=== PATIENT | female | born 1985 | race Caucasian/White ===

== ENCOUNTER 2018-04-23 21:16 | Emergency (ER) | payer MEDICAID, SELFPAY ==
[2018-04-23 21:17] VITALS: BP 113/92; PULSE 78; RESP 16; TEMP 36.8; O2SAT 98; BMI 20.3
[2018-04-23] MEDS: 0.9% Normal Saline 1,000 ML 1000 ML IV (22:17)
[2018-04-23] MEDS: MethylPREDNISolone 125 MG/2 ML Vial 100 MG IV (22:17)
--- NOTE | 2018-04-23 22:24 | US_ITS ---
STUDY: VENOUS DOPPLER ULTRASOUND - RIGHT LOWER EXTREMITY REASON FOR EXAM: Female, 32 years old. Right leg pain TECHNIQUE: Ultrasound evaluation of the deep vein system to include hardy-scale imaging and compression was performed. Hardy-scale imaging and Doppler sonographic evaluation, including duplex spectral analysis and qualitative color flow sonography, was performed. COMPARISON: None. FINDINGS: Common Femoral Vein: Normal compression, spontaneity and augmentation. Normal color Doppler. Femoral Proximal: Normal compression. Femoral Middle: Normal compression, spontaneity and augmentation. Normal color Doppler. Femoral Distal: Normal compression. Popliteal Vein: Normal compression, spontaneity and augmentation. Normal color Doppler. Posterior Tibial Vein: Normal compression. Peroneal Vein: Normal compression. US/Venous Duplex Imag/Limited/Uni IMPRESSION: Normal venous Doppler ultrasound of the lower extremity. Electronically Signed: Ernestina Lerma MD at 22:59 EDT Tel , Service support ,
[2018-04-23 22:50] LABS: Anion Gap 7 (5-15); BUN 10 mg/dL (7-18); Calcium,Total 8.9 mg/dL (8.5-10.1); Chloride 106 mmol/L (98-107); Creatinine, Serum 0.77 mg/dL (0.55-1.02); EST Glomerular Filtration Rate 91 mL/min (>60); Est Glom Filt Rate - Afr Amer 110 mL/min (>60); Estimated Creatinine Clearance 93.76 ml/min; Glucose 87 mg/dL (74-106); Potassium 3.7 mmol/L (3.5-5.1); Sodium Level 140 mmol/L (136-145)
[2018-04-23 23:02] LABS: CPK Total, Creatine Kinase 29 U/L (26-192)
--- NOTE | 2018-04-23 23:25 | ED.DCSUM_ITS ---
- ER Visit Summary Date of Service: 04/23/18 Chief Complaint: Right leg pain History of Present Illness: The patient is a 32 F who states that she carried a child up and down a long flight of stairs at [facility] on April 20. Patient states had muscle cramps in her legs the next day. She continues to have worsening pain in her right leg that now radiates up into her thigh. She describes her foot intermittently getting purple. She was seen at [facility]. She was given [place] and Naprosyn along with crutches. Physical Examination: Vital signs unremarkable. Patient sitting upright in bed no acute distress. Head neck examination reveals that she is edentulous. Heart is regular rate and rhythm. Lung sounds are clear. Abdomen is soft nontender. Back examination reveals no tenderness. Lower extremity examination was muscular tenderness throughout the right thigh and lower leg. She has strong distal pulses. She has normal coloration to her leg. She has pain with motion but has good range of motion. Test Results: Venous ultrasound is performed and unremarkable. CK level was obtained and normal. Chemistry studies normal. Emergency Department Course and Treatment: Patient was given a dose of Flexeril and Solu-Medrol here. She already been given Naprosyn and [place]. She will be given prescriptions for Flexeril and prednisone. At this time I discussed test results with her. I think she likely has muscle irritation and inflammation from the overuse. Treatment Plan: [] Disposition: Discharge Impression: Musculoskeletal right leg pain This note was generated with [employer] dictation software. It may contain incorrect words, spelling, and punctuation that were not noted in review of the chart prior to signing ED Disposition - Plan for ED Patient: Chief Complaint: Lower Extremity Injury Referrals: Care Physician,No Primary [Primary Care Provider] -
--- NOTE | 2018-04-23 23:25 | ED.DEP ---
ED Disposition - Plan for ED Patient: Disposition: Home or Assisted Living Chief Complaint: Lower Extremity Injury Instructions: ED Strain Muscle Ext Prescriptions: Prednisone [Deltasone] 40 mg PO DAILY #10 tablet Cyclobenzaprine [Flexeril] 10 mg PO TID PRN #20 tablet PRN Reason: Muscle Spasm Referrals: Amadeo Diego PA [PHYSICIAN [employer] [employer]] -
[2018-04-23 23:40] VITALS: BP 125/63; PULSE 77; RESP 18; O2SAT 97
== END 2018-04-23 23:41 | disposition home or self-care (01) ==
PROVIDERS: Emergency Provider Emergency Medicine
DX: M79.604 Pain in right leg (principal); J45.909 Unspecified asthma, uncomplicated; Z72.0 Tobacco use
CPT/HCPCS: 80048; 82550; 93971; 96361; 96374; 99284; J7030; A4216

== ENCOUNTER 2020-03-11 12:52 | Emergency (ER) | payer MEDICAID, SELFPAY ==
[2020-03-11 12:54] VITALS: BP 125/84; PULSE 76; RESP 16; TEMP 36.3; O2SAT 99; BMI 19.3
--- NOTE | 2020-03-11 13:38 | ED.DCSUM_ITS ---
- ER Visit Summary Date of Service: 03/11/20 Chief Complaint: Right lower molar pain a cavity History of Present Illness: The patient is a 34 F no seen past medical history. She had all of her teeth removed except at the time that he did that they did not think her right molar was going to break the skin so the never took it out. She has had pain there now for the last 6 to 8 months. Has a large cavity. Denies any fever chills. No facial swelling. Physical Examination: Well-appearing young female vital signs stable afebrile. H EENT exam all of her teeth are gone except her right lower last molar which has a large cavity. Palpation. Minor gum swelling. No visible abscess. No facial swelling. No trismus. No trouble swallowing or breathing. Otherwise her other dentition are all been removed. Neck nontender no lymphadenopathy. Lungs clear to auscultation. Heart regular rhythm no murmur. M soft nontender. Extremities moves all 4. Neurologically she is awake alert with no focal motor deficits. Test Results: None Emergency Department Course and Treatment: Dose of Pen-Vee K here. Treatment Plan: Refer to Dr. Figueroa Michaud oral maxillofacial surgeon for possible molar removal. Started on Pen-Vee K 4 times a day for 10 days. Tylenol and Motrin for pain. Disposition: Discharge Impression: Right lower molar cavity Rule out abscess Dental pain This note was generated with [employer] dictation software. It may contain incorrect words, spelling, and punctuation that were not noted in review of the chart prior to signing ED Disposition - Plan for ED Patient: Referrals: Care Physician,No Primary [Primary Care Provider] -
--- NOTE | 2020-03-11 13:42 | ED.DEP ---
ED Disposition - Plan for ED Patient: Disposition: Home or Assisted Living Instructions: ED CAVITY Dental, ED ABSCESS DENTAL Prescriptions: Penicillin Vk [Pen-Vee K , V-Cillin K] 500 mg PO 4X/DAY 10 Days #40 tab Prescription Printed Referrals: Figueroa Michaud DDS [STAFF PHYSICIAN] - As soon as possible Additional Instructions: Pen-Vee K the antibiotic 4 times a day till gone. Tylenol and Motrin for pain. I should try to decrease swelling. Call and follow-up with either a local dentist or Dr. Nikolas Michaud a local oral surgeon to have that molar removed.
[2020-03-11] MEDS: Penicillin Vk 250 MG Tablet 500 MG PO (13:45)
== END 2020-03-11 13:59 | disposition home or self-care (01) ==
LOC: ED 13:48
PROVIDERS: Emergency Provider Emergency Medicine
DX: K04.7 Periapical abscess without sinus (principal); K02.9 Dental caries, unspecified; Z72.0 Tobacco use
CPT/HCPCS: 99283

== ENCOUNTER 2022-08-25 06:38 | Emergency (ER) | payer MEDICAID, SELFPAY ==
[2022-08-25 06:39] VITALS: BP 132/90; PULSE 70; RESP 17; TEMP 37; O2SAT 100; BMI 20.9
--- NOTE | 2022-08-25 07:08 | EKG12_ITS ---
Test Reason : CP Blood Pressure : / mmHG Vent. Rate : 069 BPM Atrial Rate : 069 BPM P-R Int : 148 ms QRS Dur : 088 ms QT Int : 394 ms P-R-T Axes : 041 042 047 degrees QTc Int : 422 ms Normal sinus rhythm Normal ECG Confirmed by ERICKA WILL, ALIN ([id number]), web content editor KIEL JNOES ([id number]) on 08/28/2022 10:29:16 AM Referred By: LAKSHMI Confirmed By:ALIN BARNETT MD
[2022-08-25] MEDS: Aspirin 325 MG Tablet PO (07:14)
--- NOTE | 2022-08-25 07:20 | RAD_ITS ---
INDICATION: chest pain EXAMINATION/TECHNIQUE: X-RAY - XR Chest 2 Views COMPARISON: None. FINDINGS: LINES/DEVICES: None. LUNGS: No consolidation, edema or effusion. No pneumothorax. MEDIASTINUM AND CARDIOVASCULAR STRUCTURES: Cardiac silhouette not enlarged. Central airways and mediastinal contour are unremarkable. BONES AND SOFT TISSUES: Unremarkable. RAD/Chest PA and Lateral IMPRESSION: No acute cardiopulmonary disease. Electronically Signed: Zhao Trujillo MD at 7:40 EST ,
[2022-08-25 07:25] LABS: Absolute Lymphocyte Count 2.43 X10^3/uL (0.83-4.51); Absolute Neutrophil Count 3.1 X10^3/uL (2.0-7.7); Basophil# 0.07 X10^3/uL; Basophil% 1.1 % (0-1); Eosinophil# 0.64 X10^3/uL; Eosinophils% 9.6 % (0-5); Hematocrit 37.4 % (37-47); Hemoglobin 12.3 g/dL (12.0-15.0); Lymphocyte # 2.43 X10^3/ul (0.83-4.51); Lymphocyte % 36.5 % (19-41); Mean Corp Hgb Conc 32.9 g/dL (32-36); Mean Corpuscular Hgb 28.7 pg (27.0-32.0); Mean Corpuscular Volume 87.4 fL (81-99); Mean Platelet Vol. 10.6 fl (6.2-12.0); NRBC Flagged by Analyzer 0 % (0-5); Neutrophil % 46.5 % (47-70); Platelet Count 213 K/mm3 (150-450); RBC Distribution Width CV 12.7 % (11.6-14.6); RBC Distribution Width SD 40.8 fl (35.1-43.9); Red Blood Count 4.28 M/mm3 (4.2-5.4); White Blood Count 6.7 K/mm3 (4.4-11.0)
--- NOTE | 2022-08-25 07:41 | EX.ED.DYSGE1 ---
HPI History of Present Illness Chief Complaint: Chest Pain Narrative Narrative: Patient is a 37-year-old female with past medical history of smoking restless leg syndrome and chronic pain. She states that over the past 8 hours she will have intermittent bouts of lower chest/upper abdominal pain that is sharp in nature lasting approximately 1 minute and then resolving. She states that there is no nausea vomiting diaphoresis or shortness of breath associated with this. She denies any illicit drug use or excessive stimulant use or cardiac disease in the family at a young age. However she does report that there is a family history of cardiac disease starting in the 50s and 60s and her mother and father which concerned her and therefore she presents for evaluation. Otherwise she denies any recent travel surgery or history of DVT/PE PFSH PFSH Home Medications budesonide-formoterol HFA 160 mcg-4.5 mcg/actuation aerosol inhaler 1 inh inhalation PRN PRN SOB 08/25/22 [History Last Taken Unknown] meloxicam 15 mg tablet 15 mg PO DAILY 08/25/22 [History Last Taken Unknown] mirtazapine 30 mg tablet 30 mg PO DAILY 08/25/22 [History Last Taken Unknown] tramadol 50 mg tablet 50 mg PO QHS 08/25/22 [History Last Taken Unknown] Allergy/AdvReac Type Severity Reaction Status Date / Time acetaminophen [From Percocet] AdvReac Vomiting Verified 08/25/22 06:44 oxycodone [From Percocet] AdvReac Vomiting Verified 08/25/22 06:44 Social History Smoking Status: Former smoker [facility] ED Constitutional Constitutional ED: Denies chills or fever(s) ENT ENT ED: Denies sore throat Cardiovascular Cardiovascular: Reports chest pain; Denies palpitations or racing heartbeat Respiratory/Chest Respiratory/Chest: Denies cough or dyspnea Gastrointestinal Gastrointestinal: Reports abdominal pain; Denies diarrhea, nausea or vomiting Genitourinary Genitourinary ED: Denies dysuria Musculoskeletal Musculoskeletal: Denies myalgias Integumentary Denies rash Neurologic Neurologic: Denies headache(s) Hematologic/Lymphatic Hematologic/Lymphatic: Denies easy bleeding or easy bruising EXAM Physical Exam Const Vital Signs: 08/25/22 06:39 08/25/22 06:39 Temperature 98.6 F Temperature Source Temporal Pulse Rate 70 Respiratory Rate 17 Respiratory Effort Short of Breath Blood Pressure 132/90 H Blood Pressure Mean 104 Pulse Ox 100 Oxygen Delivery Method Room Air Positive well nourished and well developed General Appearance ED: well developed HEENT Reports moist mucous membranes Eyes PERRL and EOMs intact bilaterally General Eye ED: Negative for scleral icterus Neck supple Resp normal respiratory effort and clear to auscultation bilaterally Cardio regular rate and regular rhythm Rate: other Other Details: Radial pulses are plus 2 out of 4 bilaterally they are equal and symmetric Carotid pulses equal and symmetric as well GI non-distended GI Narrative: Pain with palpation in the midepigastric region without voluntary guarding or rigidity. No pulsatile mass. No hernia noted Auscultation: normoactive bowel sounds Palpation: soft Extremity normal to inspection Extremity Narrative: No asymmetric edema no pitting edema negative Homans' sign bilaterally Neuro oriented x3 and CN's II-XII intact bilaterally Sensorium / Orientation: alert Psych mental status grossly normal Skin no rashes or lesions noted General Skin Exam: Negative for jaundice MDM MDM MDM Narrative Medical decision making narrative: Patient presented to the ER with stable vitals and a physical exam not consistent with classic cardiac pain. The pain is in the midepigastric it is sharp and stabbing in nature and comes intermittently and is also reproducible on palpation. However she does have a history of cardiac disease in the family so elected to perform a basic cardiac work-up but added liver enzymes and lipase based on location of the pain. EKG is sinus rhythm. Chest x-ray reveals no acute lung pathology. Blood work shows no elevation to her troponin or derangement to her liver enzymes or lipase. Therefore at this time patient is low risk for cardiovascular disease and work-up is negative she is safe for discharge and can follow-up on an outpatient basis Please note we did discuss obtaining a delta troponin but patient states as she is low risk for cardiovascular disease and her initial work-up is negative she does not want to wait in the ER for a delta troponin Lab Data Attestation: I reviewed the patient's lab results. Labs: Laboratory Results - last 24 hr 08/25/22 06:48 WBC 6.7 RBC 4.28 Hgb 12.3 Hct 37.4 MCV 87.4 MCH 28.7 MCHC 32.9 RDW Std Deviation 40.8 RDW Coeff of Carmencita 12.7 Plt Count 213 MPV 10.6 Immature Gran % (Auto) 0.300 Neut % (Auto) 46.5 L Lymph % (Auto) 36.5 Lucas % (Auto) 6.0 Eos % (Auto) 9.6 H Baso % (Auto) 1.1 H Absolute Neuts (auto) 3.1 Absolute Lymphs (auto) 2.43 Nucleated RBC % 0 Radiography Diagnostic Testing: Chest x-ray as interpreted by the emergency medicine physician reveals no acute infiltrate pneumothorax or pleural effusion Discharge Plan Triage Chief Complaint: Chest Pain ED Provider: Will Thompson Dx/Rx/DC Orders Clinical Impression: Acute nonspecific chest pain with low risk of coronary artery disease, History of cigarette smoking Instructions: ED Chest Pain, Uncertain Cause Prescriptions: No Action meloxicam 15 mg tablet 15 mg PO DAILY mirtazapine 30 mg tablet 30 mg PO DAILY tramadol 50 mg tablet 50 mg PO QHS budesonide-formoterol 160-4.5 mcg/actuation HFA aerosol inhaler 1 inh INHALATION PRN PRN (Reason: SOB) Primary Care Provider: Care Physician,No Primary Referrals: Marcos Chang, [Med Staff - Programming Manager] - Care Physician,No Primary [Primary Care Provider] - Activity Restrictions/Additional Instructions: Please follow-up with your family doctor for repeat evaluation. However your work-up today does not show any changes to suggest lungs heart or pancreas as a cause of your symptoms. If you have any further concerns please return to the ER for repeat evaluation Disposition Disposition: Home, Self Care
[2022-08-25 07:47] VITALS: RESP 16
[2022-08-25 07:50] LABS: AST(SGOT) 10 U/L (15-37); Alanine Aminotransfer ALT/SGPT 23 U/L (13-56); Albumin, Serum 3.5 g/dL (3.2-5.0); Alkaline Phosphatase 38 U/L (45-117); Anion Gap 8 (5-15); BUN 14 mg/dL (7-18); BUN/Creat Ratio 17.2 RATIO (10-20); Bilirubin, Direct < 0.05 mg/dL (0.00-0.30); Calcium,Total 8.6 mg/dL (8.5-10.1); Chloride 107 mmol/L (98-107); Creatinine, Serum 0.81 mg/dL (0.55-1.02); EST Glomerular Filtration Rate 84 mL/min (>60); Est Glom Filt Rate - Afr Amer 101 mL/min (>60); Estimated Creatinine Clearance 87.71 ml/min; Globulin 3.2 g/dL (2.2-4.2); Glucose 85 mg/dL (74-106); Lipase 139 U/L (73-393); Magnesium 1.9 mg/dL (1.6-2.6); Potassium 4.4 mmol/L (3.5-5.1); Protein, Total 6.7 g/dL (6.4-8.2); Sodium Level 139 mmol/L (136-145); Troponin-I HS 4 pg/mL (3.0-54.0)
[2022-08-25 08:06] VITALS: PULSE 70; RESP 16; O2SAT 99
== END 2022-08-25 08:06 | disposition home or self-care (01) ==
PROVIDERS: Emergency Provider Emergency Medicine; Visit Provider Emergency Medicine
DX: R07.9 Chest pain, unspecified (principal); Z87.891 Personal history of nicotine dependence
CPT/HCPCS: 71046; 80048; 80076; 83690; 83735; 84484; 85025; 93005; 99284; A4216

== ENCOUNTER 2022-08-30 06:15 | Emergency (ER) | payer MEDICAID, SELFPAY ==
[2022-08-30 06:16] VITALS: BP 126/98; PULSE 89; RESP 20; TEMP 37.1; O2SAT 96
--- NOTE | 2022-08-30 06:34 | RAD_ITS ---
EXAM: XR LUMBOSACRAL SPINE, 2 OR 3 VIEWS CLINICAL INDICATION: pain TECHNIQUE: Frontal and lateral views of the lumbar spine and sacrum. This report was created using [employer] report [employer] technology. COMPARISON: None. FINDINGS: VERTEBRAE: Unremarkable. Preserved vertebral body height. No fracture. No spondylolisthesis. Preservation of the normal lumbar lordosis. No significant facet arthropathy. DISC SPACES: No acute findings. Disc spaces are maintained. GASTROINTESTINAL TRACT: Unremarkable as visualized. Included bowel gas pattern is non-obstructive. RAD/Lumbar Spine 2 or 3 Views IMPRESSION: No evidence of lumbar spinal fracture or spondylolisthesis. Electronically Signed: Endy Zamora MD at 7:37 EST ,
--- NOTE | 2022-08-30 06:34 | RAD_ITS ---
EXAM: XR RIGHT HIP WITH PELVIS WHEN PERFORMED, 2 OR 3 VIEWS CLINICAL INDICATION: pain TECHNIQUE: Two or three views of the right hip with pelvis when performed. This report was created using [employer] report generation technology. COMPARISON: None. FINDINGS: BONES/JOINTS: Unremarkable. No displaced fracture. No destructive or sclerotic lesions. Note that overlapping bowel shadows may however obscure fine detail. Sacroiliac joint is unremarkable. No widening of the pubic symphysis. The articular structures are unremarkable. SOFT TISSUES: Unremarkable. No soft tissue swelling or gas. RAD/HIP, UNI W/ Pelvis 2-3 Views IMPRESSION: No evidence of displaced pelvic or hip fracture. Electronically Signed: Endy Zamora MD at 7:33 EST ,
--- NOTE | 2022-08-30 06:36 | ED.VIS.BACK ---
HPI History of Present Illness Chief Complaint: Lower Extremity Injury Informant: patient Onset/Context/Timing Onset: Days (1-2) Context: Gradual Onset Timing: Continuous Quality: Aching Location: Lumbar (R), Right Leg (w/ paresthesias in foot when pain is severe) and Left Leg (occasionally) Current Severity: Severe Maximum Severity: Severe Worsened by: improves with Movement Relieved by: Nothing Associated Symptoms Associated Symptoms: Numbness, Radiation to Right Leg and Radiation to Left Leg; Negative for Fever, Abdominal Pain, Dysuria, Unable to Ambulate, Unable to Transfer, Urinary Retention, Urinary Incontinence, Constipation or Fecal Incontinence Narrative Narrative: Patient presents with 1 to 2 days of severe pain in her right low back/hip area although she points to her right lumbosacral/SI joint area, states that pain is radiating into her right thigh and 1 to become severe she gets pain and tingling in her right foot and sometimes in her left leg as well. She denies any bowel or bladder dysfunction. She is able to move her legs without any difficulty, it is just painful to move. History is somewhat limited, she is writhing around the bed in pain. She was seen here 5 days ago for chest symptoms, she states that those have not recurred and she did not have any of this discomfort then. She denies having any injury or fall. She denies having a history of this. She denies saddle anesthesia. She states she has a history of her hips popping indicating more pain laterally about the greater trochanter and sometimes into the groin and states this is something different than that. She has never seen orthopedics for any of her hip issues in the past. Prior similar symptoms: No PFSH PFSH Medical History History of cigarette smoking Home Medications budesonide-formoterol HFA 160 mcg-4.5 mcg/actuation aerosol inhaler 1 inh inhalation PRN PRN SOB 08/25/22 [History Last Taken Unknown] meloxicam 15 mg tablet 15 mg PO DAILY 08/25/22 [History Last Taken Unknown] mirtazapine 30 mg tablet 30 mg PO DAILY 08/25/22 [History Last Taken Unknown] hydrocodone-acetaminophen 5-325mg 5mg-325mg 1 tab PO Q6H PRN PRN Pain 3 days #10 TABLETS 08/30/22 [Rx Last Taken Unknown] naproxen 500 mg tablet 500 mg PO BID #20 tabs 08/30/22 [Rx Last Taken Unknown] Allergy/AdvReac Type Severity Reaction Status Date / Time acetaminophen [From Percocet] AdvReac Vomiting Verified 08/30/22 06:19 oxycodone [From Percocet] AdvReac Vomiting Verified 08/30/22 06:19 Social History Smoking Status: Former smoker ROS ROS ED Constitutional Constitutional ED: Denies chills or fever(s) Gastrointestinal Gastrointestinal: Denies abdominal pain, constipation, fecal incontinence, nausea or vomiting Genitourinary Genitourinary ED: Reports other Details: no urinary retention ; Denies abdominal discomfort or urinary incontinence Musculoskeletal Musculoskeletal: Reports as per HPI and back pain; Denies neck pain Integumentary Denies rash or wounds Neurologic Neurologic: Reports paresthesias; Denies headache(s) or weakness EXAM Physical Exam Const Vital Signs: 08/30/22 06:16 Temperature 98.8 F Temperature Source Temporal Pulse Rate 89 Respiratory Rate 20 H Blood Pressure 126/98 H Blood Pressure Mean 107 Pulse Ox 96 Oxygen Delivery Method Room Air Positive well nourished and well developed Constitutional Narrative: Writhing in the bed in acute painful distress General Appearance ED: well developed HEENT Negative for trauma or tenderness Eyes PERRL and EOMs intact bilaterally Neck full ROM and supple GI normal to inspection, nondistended, normoactive bowel sounds, soft to palpation and non-tender Back/Spine normal to inspection Back/Spine Narrative: Patient withdraws in pain with superficial palpation anywhere in the midline lumbosacral spine or the right paraspinal musculature and SI joint, in addition to the sciatic notch. Exam is very limited. Inspection is normal. No sign of any injury or rash. Straight leg raises yield increased back pain bilaterally but do not reproduce any radicular symptoms. Lumbar Spine / Lower Back: ROM limited, lumbar spinal tenderness, paraspinal muscle tenderness and straight leg raise negative bilaterally Extremity normal to inspection, full ROM and no pedal edema Neuro oriented x3 and no sensory deficits noted Sensorium / Orientation: alert Motor Exam: strength 5/5 throughout and clonus absent Deep Tendon Reflexes: Rt Patellar (L4): 2+, Lt Patellar (L4): 2+, Rt Ankle (S1): 2+ and Lt Ankle (S1): 2+ Deep Tendon Reflexes Back: Rt Patellar (L4): 2+, Lt Patellar (L4): 2+, Rt Ankle (S1): 2+ and Lt Ankle (S1): 2+ Plantar Reflex: Downgoing: bilateral Psych thought process normal Attitude: agitated Mood & Affect: tearful Skin no rashes or lesions noted and no wounds MDM MDM MDM Narrative Medical decision making narrative: X-rays of the hip and the lumbar spine were obtained. 3 views of the lumbar spine to my interpretation are negative for anything acute and 3 views of the pelvis and right hip on my interpretation are negative for any acute as well. Radiology in agreement. Patient was given an IV in addition to Toradol and morphine as well as prophylactic Zofran. She is feeling better on reevaluation. She is comfortable going home, she does not have cauda equina syndrome or any other emergent condition on my exam at this time does not require any emergent MRI. If this is truly sciatica, and her symptoms do not resolve she may require more advanced imaging such as MR. Discussed this with her, we will give her prescription for NSAID and analgesics and advised close outpatient follow-up and she is okay with that plan. Radiography Diagnostic Testing: Clinical Impression(s) from Imaging Studies Hip/Pelvis X-Ray 08/30/22 06:34 IMPRESSION: No evidence of displaced pelvic or hip fracture. Electronically Signed: Endy Zamora MD at 7:33 EST Reading Location ID and State: [facility] / [place] Tel , Service support , Lumbar Spine X-Ray 08/30/22 06:34 IMPRESSION: No evidence of lumbar spinal fracture or spondylolisthesis. Electronically Signed: Endy Zamora MD at 7:37 EST , Discharge Plan Triage Chief Complaint: Lower Extremity Injury ED Provider: Dave Nelson Dx/Rx/DC Orders Clinical Impression: Acute right-sided low back pain with sciatica Instructions: ED Sciatica Prescriptions: New hydrocodone-acetaminophen [hydrocodone-acetaminophen] 5-325 mg tablet 1 tab PO Q6H PRN PRN (Reason: Pain) 3 Days Qty: 10 0RF naproxen 500 mg tablet 500 mg PO BID Qty: 20 0RF No Action meloxicam 15 mg tablet 15 mg PO DAILY mirtazapine 30 mg tablet 30 mg PO DAILY budesonide-formoterol 160-4.5 mcg/actuation HFA aerosol inhaler 1 inh INHALATION PRN PRN (Reason: SOB) Primary Care Provider: Care Physician,No Primary Referrals: Doctor,Your [Non-Staff] - 1 Week if not improving Disposition Disposition: Home, Self Care
[2022-08-30] MEDS: Ondansetron 4 MG/2 ML Vial IV (06:53)
[2022-08-30] MEDS: Morphine 4 MG/ML Syringe IV (06:53)
[2022-08-30] MEDS: Ketorolac 30 MG/ML Syringe IV (06:53)
== END 2022-08-30 08:59 | disposition home or self-care (01) ==
PROVIDERS: Emergency Provider Emergency Medicine; Visit Provider Emergency Medicine
DX: M54.41 Lumbago with sciatica, right side (principal); Z87.891 Personal history of nicotine dependence; R20.2 Paresthesia of skin
CPT/HCPCS: 72100; 73502; 96374; 96375; 99282; A4216; J2405